=== PATIENT | male | born 1955 | race Hispanic/Latino ===

== ENCOUNTER 2025-05-21 22:09 | Inpatient (IN) | payer MEDICARE ==
[~2025-05-21] VITALS: Ht 175.3 cm; Wt 87.0 kg
--- NOTE | 2025-05-21 23:36 | HMCIMG ---
EXAM: CR Right Knee, 3 views. CLINICAL HISTORY: To rule out fracture. COMPARISON: None. FINDINGS: Undisplaced articular surface fracture of the lateral tibial condyle. The remaining visualized bones are normal in cortical outline and density. No aggressive osseous lesion. Mild knee joint osteoarthritis. Mild joint effusion. The soft tissues are unremarkable. IMPRESSION: Undisplaced articular surface fracture of the lateral tibial condyle. Mild knee joint osteoarthritis and effusion. Recommend NCCT right knee for further evaluation. /[place]
--- NOTE | 2025-05-21 23:38 | HMCIMG ---
EXAM: CR Right Tibia-fibula, 4 views. CLINICAL HISTORY: To rule out fracture. COMPARISON: None. FINDINGS: Undisplaced articular surface fracture of the lateral tibial condyle. The remaining visualized bones are normal in cortical outline and density. No aggressive osseous lesion. Mild right knee and ankle joint osteoarthritis. The soft tissues are unremarkable. IMPRESSION: Undisplaced articular surface fracture of the lateral tibial condyle. Mild right knee and ankle joint osteoarthritis. Recommend NCCT right knee for further evaluation. /[place]
[2025-05-22] VITALS (7 sets, daily range): BP systolic 124–134; BP diastolic 66–79; PULSE 68–81; RESP 16–20; TEMP 96.7–98.6; O2SAT 95–99
--- NOTE | 2025-05-22 | NUR ---
PATIENT CLEANED AND LINENS CHANGED. ALL PERSONAL BELONGINGS GATHERED AND PLACED IN HOSPITAL ISSUED BELONGINGS BAG, SECURED AT BEDSIDE.
[2025-05-22 00:52] LABS: IMMATURE GRANULOCYTE ABSOLUTE 0.05 K/uL (0-1); NUCLEATED RED BLOOD CELLS 0.0 % (0.0-0.19); PLATELET COUNT (AUTO) 356 K/uL (130-400); RED BLOOD CELL COUNT(AUTO) 4.09 MIL/uL (4.50-6.20); RED CELL DISTRIBUTION WIDTH 12.5 % (11.0-15.5); WHITE BLOOD COUNT (AUTO) 11.6 K/uL (4.8-10.8)
[2025-05-22 01:01] LABS: CREATININE 1.0 mg/dL (0.5-1.3); GLOMERULAR FILTR. RATE CALC 80.0 mL/min (>90); GLUCOSE,RANDOM 195.0 mg/dL (70-105); SODIUM SERUM 141.0 mmol/L (136-145); UREA NITROGEN, BLOOD 27.0 mg/dL (7-18)
--- NOTE | 2025-05-22 01:03 | HMCIMG ---
EXAM: CR Pelvis, 1 view. CLINICAL HISTORY: To rule out fracture. COMPARISON: None provided. FINDINGS: No acute fracture or aggressive appearing osseous lesion. Joint spaces are within normal limits. The soft tissues are unremarkable. IMPRESSION: No acute osseous abnormality. /[place]
--- NOTE | 2025-05-22 01:45 | HMCIMG ---
EXAM: Non-contrast CT examination of the Brain. CLINICAL HISTORY: Fall. TECHNIQUE: Thin collimated axial CT images of the brain were obtained, with sagittal and coronal reformatted images also submitted. A CT scan was done according to ALARA (As low as reasonably achievable). CONTRAST USED: None. COMPARISON: None provided. FINDINGS: No acute intracranial abnormality is present. 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 Small chronic infarct in the left frontal lobe cortex. Moderate small vessel chronic ischemic changes in bilateral cerebral white matter. No acute cortical infarction, hemorrhage, mass, or mass effect. There is mild prominence of the ventricles, cisterns, and sulci. No hydrocephalus or abnormal extra-axial fluid collections. The posterior fossa is unremarkable. The skull base and calvarium are intact. The included portions of the paranasal sinuses and bilateral mastoid air cells are clear. IMPRESSION: No acute intracranial abnormality is present. Mild generalized brain atrophy. 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 Small chronic infarct in the left frontal lobe cortex. Moderate chronic small vessel ischemic disease. /[place]
--- NOTE | 2025-05-22 02:14 | ERN ---
General Chief Complaint: Lower Extremity Pain/Injury Stated Complaint: RLE PAIN Time Seen by MD: 22:12 Time Seen by Midlevel: 22:12 Source: patient History of Present Illness Initial Comments Patient is a 70-year-old male with a past medical history of multiple strokes presenting to the emergency department for evaluation of right lower extremity pain. The patient states his pain starts at the right knee and extends all the way down to his foot. Patient states he was out of town and had a fall on Friday. He was seen in an emergency department and discharged home with pain medications which have not improved his symptoms. The patient states he is unable to ambulate secondary to right lower extremity pain. Allergies: Coded Allergies: No Known Drug Allergies (Unverified Allergy, Unknown, 05/21/25) Past Medical History Past Medical History: No Pertinent History Past Surgical History: Unknown ROS Dictation CONSTITUTIONAL: Negative except for HPI HEAD/FACE: Negative except for HPI EENT: Negative except for HPI RESPIRATORY: Negative except for HPI GASTROINTESTINAL/ABDOMINAL: Negative except for HPI GENITOURINARY: Negative except for HPI MUSCULOSKELETAL: Negative except for HPI INTEGUMENTARY: Negative except for HPI NEUROLOGICAL/PSYCH: Negative except for HPI HEMATOLOGIC/LYMPHATIC: Negative except for HPI All Systems Negative, Except as noted above. 13 point review of systems assessed and all negative except for above. Physical Exam Physical Exam Dictation Vital Signs reviewed General Appearance: Alert, oriented x 3, no acute distress, well developed, nourished. Head and Face: non-traumatic. Eyes: PERRL, pink conjunctivas, eyelid no trauma, anterior chamber with arcus senilis. Ears: Pinnas intact and no signs of trauma or erythema ear canals clear and no discharge TM no erythema Nose: No discharge, no bleeding. Oropharynx: Mouth normal, tongue pink, pharynx clear,no erythema, tonsils no exudates, no abscesses noted, mucous membrane moist Neck: Supple, non-tender, no thyromegaly, no masses, no JVD, no bruits Breast:Deferred Chest:No tenderness, no crepitus, no paradoxical movement, no retractions Lungs:Clear, well-ventilated, symmetric, no rales, no wheezing, no rhonchi, no stridor, good breath sounds bilaterally Heart: Regular rate, regular rhythm, no murmur, no gallops Vascular: no peripheral edema, Abdomen: Soft, positive bowel sounds, nondistended, no guarding, nontender, no rebound, no masses no hepatomegaly, no splenomegaly, no Geiger's sign, no hernias. Rectal: Deferred Genital: Deferred Neurological: Normal speech, motor function intact, sensory function intact Musculoskeletal: Neck nontender, full range of motion, back nontender, restricted range of motion of the right knee secondary to pain, tenderness over the right tib-fib area, 2+ DP, PT pulses bilaterally Extremities: nontender, full range of motion Skin: Color pink, dry, no turgor, no rash, no lacerations, no abrasions, no contusions. Lymphatic: Deferred Results Laboratory and Microbiology Lab and Micro Result Laboratory Tests Test 05/22/25 00:45 White Blood Count 11.6 K/uL (4.8-10.8) H Red Blood Count 4.09 MIL/uL (4.50-6.20) L Hemoglobin 13.2 g/dL (14.0-18.0) L Hematocrit 37.3 % (42-54) L Mean Corpuscular Volume 91.2 fL (79-99) Mean Corpuscular Hemoglobin 32.3 pg (27.0-33.0) Mean Corpuscular Hemoglobin Concent 35.4 g/dL (32.0-36.0) Red Cell Distribution Width 12.5 % (11.0-15.5) Platelet Count 356 K/uL (130-400) Mean Platelet Volume 9.6 fL (7.5-10.5) Immature Granulocyte % (Auto) 0.4 % (0-1) Neutrophils (%) (Auto) 80.8 % (40.0-77.0) H Lymphocytes (%) (Auto) 11.6 % (21.0-51.0) L Monocytes (%) (Auto) 6.5 % (3.0-13.0) Eosinophils (%) (Auto) 0.5 % (0.0-8.0) Basophils (%) (Auto) 0.2 % (0.0-5.0) Neutrophils # (Auto) 9.4 K/uL (1.8-7.7) H Lymphocytes # (Auto) 1.4 K/uL (1.0-4.8) Monocytes # (Auto) 0.8 K/uL (0.1-1.0) Eosinophils # (Auto) 0.06 K/uL (0.00-0.70) Basophils # (Auto) 0.02 K/uL (0.00-0.20) Absolute Immature Granulocyte (auto 0.05 K/uL (0-1) Nucleated Red Blood Cells 0.0 % (0.0-0.19) Sodium Level 141 mmol/L (136-145) Potassium Level 3.0 mmol/L (3.5-5.1) *L Chloride Level 104 mmol/L (101-111) Carbon Dioxide Level 24 mmol/L (21-32) Blood Urea Nitrogen 27 mg/dL (7-18) H Creatinine 1.0 mg/dL (0.5-1.3) Glomerular Filtration Rate Calc 80 mL/min (>90) Random Glucose 195 mg/dL (70-105) H Total Calcium 8.3 mg/dL (8.5-10.1) L Labs Reviewed?: Yes MDM MDM: 70-year-old male with a history of strokes presenting to the emergency department status post fall. On arrival with the patient's main concern is pain to the right knee and right tib-fib area. Patient denies hitting his head at the time of the fall but is a poor historian. On physical examination the patient has restricted range motion of the right knee with overlying tenderness of the proximal tib-fib area. An x-ray was performed which reveals findings consistent with a superficial fracture. Per radiologist noncontrast CT was advised. A CT scan of the right lower extremity and pelvis was obtained. CT scan of the head does not show any acute intracranial abnormality. Pending CT of the right lower extremity and pelvis. We will sign out to Dr. Levine Differential diagnosis: Fracture, contusion Rationale: Tests considered and ordered secondary to shared decision making include: Previous outside records reviewed: Old ER visits. Risk of complication and/or morbidity or mortality of patient management: None Medications-Per medication reconciliation Need for hospitalization: Patient does meet criteria for hospitalization. Need for emergency major/minor surgery: No There are no social concerns with this patient. Prescription drug management Prescriptions will include symptomatic care Patient's prior external medical records from other ER visits were reviewed by me as indicated. Prior testing and results from previous visits were reviewed. Prior tests were taken into account with medical decision making and resource utilization, independent historian/historians were used to obtain complete medical history. I independently interpreted the test that were performed, results were reviewed by me and considered findings on radiology if ordered. Medical management and examination interpretation discussions were had by me with other qualified healthcare professionals as indicated for the patient's care. ED Course Orders Procedure Category Date Status Time Pelvis 1-2vws RAD 05/21/25 Resulted 22:54 Tibia/Fibula 2vws Rt RAD 05/21/25 Resulted 22:54 Knee 3vws Rt RAD 05/21/25 Resulted 22:54 Morphine 2mg Syg PHA 05/21/25 Complete (Morphine 2mg Syg) 23:00 Ondansetron 4mg Inj PHA 05/21/25 Complete (Zofran 4mg Inj) 23:00 Cbc With Differential LAB 05/22/25 Complete 00:32 Basic Metabolic Panel LAB 05/22/25 Complete 00:32 Ct Low Ext W/O CT 05/22/25 Resulted Contrast 00:32 Ct Head/Brain W/O CT 05/22/25 Resulted Contrast 00:33 Ct Pelvis W/O Contrast CT 05/22/25 Resulted 00:58 Potassium Bicarb/Cit PHA 05/22/25 Complete Ac 25meq (K-Lyte Ta 02:00 Morphine 4mg Syg PHA 05/22/25 Complete (Morphine 4mg Syg) 03:00 Current Medications Medications (Trade) Dose Ordered Sig/Bettina Route PRN Reason Start Time Stop Time Status Last Admin Dose Admin Morphine Sulfate (morPHINE 2MG SYG) 1 mg ONCE ONCE IVP 05/21/25 23:00 05/21/25 23:06 DC 05/21/25 23:12 Morphine Sulfate (morPHINE 4MG SYG) 4 mg ONCE ONCE IVP 05/22/25 03:00 05/22/25 03:01 DC 05/22/25 03:05 Ondansetron HCl (zoFRAN 4MG INJ) 4 mg ONCE ONCE IVP 05/21/25 23:00 05/21/25 23:06 DC 05/21/25 23:12 Potassium Bicarbonate (K-Lyte Tablet Eff 25 Meq Tablet.eff) 50 meq ONCE ONCE PO 05/22/25 02:00 05/22/25 02:01 DC 05/22/25 02:24 Vital Signs Date Time Temp Pulse Resp B/P (MAP) Pulse Ox O2 Delivery O2 Flow Rate FiO2 05/22/25 02:50 80 16 131/71 97 Room Air* 0 21 05/22/25 01:35 92 15 136/68 97 Room Air* 0 05/22/25 00:11 86 16 138/63 97 Room Air* 0 21 05/21/25 22:26 98.4 90 17 149/72 97 Room Air* 0 21 05/21/25 22:11 98.1 92 16 132/77 95 Room Air 0 4:00 a.m. patient accepted by [facility] mid-level provider for admission and further management of intractable right knee pain with fracture of the joint from a fall that he sustained recently DX & DISP Disposition: Inpatient Decision to Admit Time: 03:48 Departure Impression: Primary Impression: Fracture dislocation of right knee joint Additional Impressions: Right knee pain, Hypokalemia Condition: Stable Additional Instructions: Patient was informed of all the diagnostic labs and procedures conducted in the emergency room today and demonstrated understanding of the results. I personally reviewed and interpreted all the diagnostic exams performed in the ER today. The patient will be admitted to the hospital for further treatment and evaluation. Disposition-admit to facility Condition-stable/guarded Course-uncertain at this time Pain status-decreased Assessment-exam unchanged Admission Certification- I certify that the patients status is appropriate and is based on my best clinical judgment and the patient's condition as documented in the medical records Referrals: NONE (PCP) DESTINI MCKENZIE May 22, 2025 02:14 ANDREIA LEVINE MD May 22, 2025 03:52
--- NOTE | 2025-05-22 02:15 | HMCIMG ---
EXAM: Non-contrast CT examination of the right knee. CLINICAL HISTORY: Rule out right knee fracture. TECHNIQUE: Thin collimated axial CT images of the right knee were obtained, with sagittal and coronal reformatted images also submitted. A CT scan was done according to ALARA (As low as reasonably achievable). CONTRAST USED: None. COMPARISON: None provided. FINDINGS: There is a minimally depressed acute intra-articular fracture of the lateral tibial plateau. Decreased bone mineralization. Small tricompartmental osteophytes. Joint spaces are within normal limits. Mild joint effusion. Atherosclerotic vascular calcification is present. IMPRESSION: Minimally depressed acute intra-articular fracture of the lateral tibial plateau. Mild joint effusion. Osteopenia with mild tricompartmental joint osteoarthritis. /[place]
--- NOTE | 2025-05-22 02:24 | HMCIMG ---
EXAM: Non-contrast CT examination of the bony pelvis. CLINICAL HISTORY: Fall. TECHNIQUE: Thin collimated axial CT images of the bony pelvis were obtained, with sagittal and coronal reformatted images also submitted. A CT scan was done according to ALARA (As low as reasonably achievable). CONTRAST USED: Pelvic radiograph. 05/21/2025. COMPARISON: None provided. FINDINGS: No acute fracture or aggressively appearing osseous lesion. Lumbar spondylosis. Decreased bone mineralization. Mild reduction in the left hip joint space with subarticular cystic changes. Small right inguinal hernia containing fat. IMPRESSION: No acute fracture or dislocation. Osteopenia with moderate degenerative changes in the left hip. /[place]
--- NOTE | 2025-05-22 02:46 | NUR ---
PATIENT PLACED IN KNEE IMMOBILIZER DIRECTED BY ED CALVIN GEORGES. IMMOBILIZER PROPERLY APPLIED AND SECURED. PT TOLERATED PLACEMENT WELL. EDUCATED PROVIDED ABOUT THE IMPORTANCE OF A KNEE IMMOBILIZER. PT VERBILIZED UNDERSTANDING OF EDUCATION.
--- NOTE | 2025-05-22 04:10 | NUR ---
PT REPORTS NO HOME MEDICATIONS
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
--- NOTE | 2025-05-22 04:15 | NUR ---
ATTEMPT TO GIVE REPORT AT THIS TIME. NOT SUCCESSFUL.
--- NOTE | 2025-05-22 04:28 | EKG ---
[facility] Test Date: 2025-05-22 Test Time: 04:24:11 Pat Name: DOROTHY MITCHELL Department: [facility] Room: 415 Gender: M Crowning Inspector: [id number] : 1955 Requested By: PÉREZ TARANGO Order Number: [id number] Reading MD: Juan Snyder Measurements Intervals [place] Rate: 82 P: -15 WI: 266 QRS: 115 QRSD: 137 T: -26 QT: 407 QTc: 474 Interpretive Statements Sinus rhythm Prolonged WI interval RBBB and LPFB Inferior infarct, age indeterminate No previous ECG available for comparison Electronically Signed On 05-22-2025 11:40:47 CDT by Juan Snyder Please click the below link to view image of tracing.
--- NOTE | 2025-05-22 04:54 | NUR ---
REPORT GIVEN TO LAUREL BYRNE AT THIS TIME
[2025-05-22] MEDS: LACTATED RINGERS 1000ML 1,000 ML IV SCH (05:08)
[2025-05-22 06:25] LABS: INR 1.07 (0.85-1.15)
[2025-05-22] MEDS: FAMOTIDINE 20MG VIAL IV SCH (09:00)
[2025-05-22 09:40] LABS: CREATINE KINASE, TOTAL 92.0 U/L (21-232)
[2025-05-22 10:57] LABS: APPEARANCE,URINE CLEAR (CLEAR); GLUCOSE, URINE (UA) 300 mg/dL (NEGATIVE); LEUKOCYTE ESTERASE ,URINE NEGATIVE Leu/uL (NEGATIVE); NITRATE,URINE NEGATIVE (NEGATIVE); OCCULT BLOOD,URINE NEGATIVE (NEGATIVE)
[2025-05-22 10:58] LABS: ADD UA MICROSCOPIC YES
--- NOTE | 2025-05-22 11:50 | HMCIMG ---
EXAM: CR Chest, 1 View. CLINICAL HISTORY: pre procedural COMPARISON: None provided. FINDINGS: LUNGS: Prominent bronchovascular markings in bilateral lung laboy. Mild elevation of the left hemidiaphragm. Lungs are clear. PLEURAL SPACES: No pleural effusion or pneumothorax. MEDIASTINUM: Heart size and pulmonary vessels are within normal limits. BONES: No acute osseous abnormality. IMPRESSION: 1. No acute cardiopulmonary findings. /[place]
--- NOTE | 2025-05-22 15:38 | NUR ---
PATIENTS POTASSIUM 3.0 IN ER. COVERED WITH ONE DOSE OF POTASSIUM IN ER. PER PROVIDER WE WILL NOT CHECK POTASSIUM LEVEL AT THIS TIME.
--- NOTE | 2025-05-22 16:45 | CONS ---
CONSULTATION NOTE Date of Service: May 22, 2025 Reason for Consultation: Right tibial plateau fracture Requesting Physician: No one called me HISTORY OF PRESENT ILLNESS: 70-year-old male with right knee injury status post fall four days ago. Patient was reporting right leg pain when he was out of town at that time. He reports that he was seen in the hospital and told nothing was wrong. He came to the emergency room here due to continued pain in the right leg. Right knee x-ray showed a lateral tibial plateau fracture that was nondisplaced. This was confirmed on CT scan. Orthopedics was consulted for management of this. The emergency room placed him into a knee immobilizer. REVIEW OF SYSTEMS CONSTITUTIONAL: Denies fever, chills, or fatigue. HEAD/FACE: No signs of trauma. EENT: Denies eye pain, blurred vision, double vision, or light sensitivity. RESPIRATORY: Denies shortness of breath, cough, wheezing CARDIOVASCULAR: Denies chest pain, palpitation, syncope GASTROINTESTINAL/ABDOMINAL: Denies abdominal pain, constipation, diarrhea, nausea or vomiting GENITOURINARY: Denies dysuria or hematuria. MUSCULOSKELETAL: Reports joint pain, tenderness, trauma. INTEGUMENTARY: Denies rash or itchiness NEUROLOGICAL/PSYCH: Denies anxiety, depression, heat or cold intolerance. PAST MEDICAL HISTORY: Denies PAST SURGICAL HISTORY: Left testicular surgery, right 2nd toe amputation PAST SOCIAL HISTORY: Negative x3, homeless FAMILY HISTORY: Noncontributory Coded Allergies: No Known Drug Allergies (Unverified Allergy, Unknown, 05/21/25) PHYSICAL EXAM EYES: Anicteric. HENT: Moist Oral mucosa NECK: Supple LUNGS: Nonlabored breathing CARDIOVASCULAR: Regular rate ABDOMEN: Nondistended CENTRAL NERVOUS SYSTEM: Awake, alert, oriented x 3. No focal deficits. SKIN: No lacerations, no abrasions, no ecchymosis LYMPHATICS: No peripheral lymphadenopathy MUSCULOSKELETAL: Right lower extremity in a knee immobilizer. Patient yells in pain when I gently touched the foot to remove his sock for distal neurovascular exam and yells at me to take my hand off of him. He states that his sensation is intact. He wheels as toes on command. EXTREMITIES: No cyanosis or clubbing BACK: Deferred GENITOURINARY: Deferred Vital Sign (Last 24 Hours) 05/22/25 05/22/25 05/22/25 08:00 12:00 16:22 Temp 96.6 Pulse 68 Resp 16 B/P (MAP) 134/66 Pulse Ox 97 O2 Delivery Room Air O2 Flow Rate 0 FiO2 21 LABS: Laboratory: Test 05/22/25 10:48 05/22/25 09:18 05/22/25 05:38 05/22/25 00:45 Range/Units Urine Color YELLOW YELLOW Urine Appearance CLEAR CLEAR Urine pH 5.5 5.0-8.0 Urine Specific [place] 1.028 1.001-1.031 Urine Protein 70 H NEGATIVE mg/dL Urine Glucose (UA) 300 H NEGATIVE mg/dL Urine Ketones 20 H NEGATIVE mg/dL Urine Occult Blood NEGATIVE NEGATIVE Urine Nitrate NEGATIVE NEGATIVE Urine Bilirubin 0.5 H NEGATIVE mg/dL Urine Urobilinogen 0.2 0.2-1.0 mg/dL Urine Leukocyte Esterase NEGATIVE NEGATIVE Sergio/uL Urine RBC 0-1 0-1 /HPF Urine WBC 6-10 H 0-1 /HPF Urine Bacteria None None Seen /HPF Lactic Acid Level 1.1 0.8-2.5 mmol/L Total Creatine Kinase 92 21-232 U/L Prothrombin Time 11.3 9.6-11.6 SEC Prothromb Time International Ratio 1.07 0.85-1.15 Activated Partial Thromboplast Time 30.4 26.3-35.5 SEC White Blood Count 11.6 H 4.8-10.8 K/uL Red Blood Count 4.09 L 4.50-6.20 MIL/uL Hemoglobin 13.2 L 14.0-18.0 g/dL Hematocrit 37.3 L 42-54 % Mean Corpuscular Volume 91.2 79-99 fL Mean Corpuscular Hemoglobin 32.3 27.0-33.0 pg Mean Corpuscular Hemoglobin Concent 35.4 32.0-36.0 g/dL Red Cell Distribution Width 12.5 11.0-15.5 % Platelet Count 356 130-400 K/uL Mean Platelet Volume 9.6 7.5-10.5 fL Immature Granulocyte % (Auto) 0.4 0-1 % Neutrophils (%) (Auto) 80.8 H 40.0-77.0 % Lymphocytes (%) (Auto) 11.6 L 21.0-51.0 % Monocytes (%) (Auto) 6.5 3.0-13.0 % Eosinophils (%) (Auto) 0.5 0.0-8.0 % Basophils (%) (Auto) 0.2 0.0-5.0 % Neutrophils # (Auto) 9.4 H 1.8-7.7 K/uL Lymphocytes # (Auto) 1.4 1.0-4.8 K/uL Monocytes # (Auto) 0.8 0.1-1.0 K/uL Eosinophils # (Auto) 0.06 0.00-0.70 K/uL Basophils # (Auto) 0.02 0.00-0.20 K/uL Absolute Immature Granulocyte (auto 0.05 0-1 K/uL Nucleated Red Blood Cells 0.0 0.0-0.19 % Sodium Level 141 136-145 mmol/L Potassium Level 3.0 *L 3.5-5.1 mmol/L Chloride Level 104 101-111 mmol/L Carbon Dioxide Level 24 21-32 mmol/L Blood Urea Nitrogen 27 H 7-18 mg/dL Creatinine 1.0 0.5-1.3 mg/dL Glomerular Filtration Rate Calc 80 >90 mL/min Random Glucose 195 H 70-105 mg/dL Total Calcium 8.3 L 8.5-10.1 mg/dL Magnesium Level 2.00 1.80-2.40 mg/dL DIAGNOSTICS / RADIOLOGY: Two views of the right knee with nondisplaced right lateral tibial plateau fracture. CT scan confirmed isolated right lateral tibial plateau fracture ASSESSMENT: 70-year-old male with right lateral tibial plateau nondisplaced fracture PLAN: This can be treated in knee immobilizer. Patient is to remain nonweightbearing on the right lower extremity over the next three months. [facility] two weeks. HARSHAL GONZALEZ MD May 22, 2025 16:45
--- NOTE | 2025-05-22 22:51 | PN ---
[facility] PROGRESS NOTE Date of Service: May 22, 2025 Time of Service: 22:00 SUBJECTIVE: 70-year-old male with unknown past medical history, history of alcoholism, homeless status presented to ER with complaints of right lower extremity pain pain at 4 days. Patient reports that he was traveling from [place] by bus. While using the restroom, he slipped and fell. He was taken to a nearby hospital via EMS, but was discharged from the emergency department with pain medications .His pain persisted which prompted the ED visit. At the time of presentation, patient reported excruciating right knee pain and was unable to ambulate properly. His vitals were: Temperature 98.1, pulse rate 92 per minute, respiratory rate 16 per minute, BP 132/77 mmHg, pulse oximetry 95% on room air. On examination patient had restricted range of motion of the right knee with tenderness of the proximal tibia area. X-ray showed features suggestive of Undisplaced articular surface fracture of the lateral tibial condyle. Intrauterine. CT scan showed Minimally depressed acute intra- articular fracture of the lateral tibial plateau. Rest of the trauma workup was negative. Patient is admitted for evaluation and management right tibial fracture. Orthopedic surgery was consulted. 05/22/2025: Patient was seen and evaluated at the bedside. He complains of persistent right tibial pain even with morphine. Right leg knee immobilizer is in place. Vitals are stable[place] [address], potassium 3, BUN 27. Pending orthopedic surgery consult. Patient stated that [place] the streets but has some form of insurance coverage- interlibrary loan services librarian and case management on board. REVIEW OF SYSTEMS CONSTITUTIONAL: Denies fevers, chills, or night sweats. No unintentional weight loss reported. NEUROLOGICAL: Denies headache. Positive for generalized weakness. Bed-bound CARDIOVASCULAR: Denies any exertional angina, dyspnea on exertion, orthopnea, palpitations PULMONARY: Denies any shortness of breath, cough, phlegm/sputum, hemoptysis, pleuritic chest pain. GASTROINTESTINAL: Denies any type of dysphagia to either liquids or solids. Denies nausea, vomiting, pyrosis, early satiety, abdominal pain, diarrhea, constipation, or changes in stool consistency GENITOURINARY: Denies frequency, urgency, nocturia, hematuria or incontinence HEMATOLOGIC: Denies thrombophilia/previous clots, or coagulopathy/bleeding disorders. ONCOLOGIC: Denies personal history of malignancy. PSYCHIATRIC: Denies any suicidal or homicidal ideation. Denies hallucinations. PHYSICAL EXAM GENERAL APPEARANCE: The patient is awake, alert, and oriented, in no acute cardiopulmonary distress. NEUROLOGICAL: Cranial nerves II-XII grossly intact. Motor strength,sensory examination in the lower extremities and gait could not be assessed, due to severe pain at the time of my evaluation. HEENT: Face is symmetric. Pupils are equal and reactive. Poor oral hygiene NECK: Supple. No JVD. No thyromegaly. No lymphadenopathy LUNGS: Absence of any rales, rhonchi or any wheezing. CARDIOVASCULAR: Regular. S1 and S2 normal. No appreciable rubs, murmurs or gallops. ABDOMEN: Soft, nontender, and nondistended. There is no rebound, voluntary guarding, or rigidity. EXTREMITIES: Non-edematous and not cyanotic. Right leg knee immobilizer in place, status post right 2nd toe amputation Bilateral foot hyperpigmentation Vital Signs (last 8hr) Date Time Temp Pulse Resp B/P (MAP) Pulse Ox O2 Delivery O2 Flow Rate FiO2 05/22/25 20:00 98.6 81 20 133/76 95 Room Air 05/22/25 16:22 96.6 68 16 134/66 97 Room Air LABS: Laboratory: Test 05/22/25 10:48 05/22/25 09:18 05/22/25 05:38 05/22/25 00:45 Range/Units Urine Color YELLOW YELLOW Urine Appearance CLEAR CLEAR Urine pH 5.5 5.0-8.0 Urine Specific [place] 1.028 1.001-1.031 Urine Protein 70 H NEGATIVE mg/dL Urine Glucose (UA) 300 H NEGATIVE mg/dL Urine Ketones 20 H NEGATIVE mg/dL Urine Occult Blood NEGATIVE NEGATIVE Urine Nitrate NEGATIVE NEGATIVE Urine Bilirubin 0.5 H NEGATIVE mg/dL Urine Urobilinogen 0.2 0.2-1.0 mg/dL Urine Leukocyte Esterase NEGATIVE NEGATIVE Sergio/uL Urine RBC 0-1 0-1 /HPF Urine WBC 6-10 H 0-1 /HPF Urine Bacteria None None Seen /HPF Lactic Acid Level 1.1 0.8-2.5 mmol/L Total Creatine Kinase 92 21-232 U/L Vitamin D 25-Hydroxy 21.6 30.0-100.0 ng/mL Prothrombin Time 11.3 9.6-11.6 SEC Prothromb Time International Ratio 1.07 0.85-1.15 Activated Partial Thromboplast Time 30.4 26.3-35.5 SEC White Blood Count 11.6 H 4.8-10.8 K/uL Red Blood Count 4.09 L 4.50-6.20 MIL/uL Hemoglobin 13.2 L 14.0-18.0 g/dL Hematocrit 37.3 L 42-54 % Mean Corpuscular Volume 91.2 79-99 fL Mean Corpuscular Hemoglobin 32.3 27.0-33.0 pg Mean Corpuscular Hemoglobin Concent 35.4 32.0-36.0 g/dL Red Cell Distribution Width 12.5 11.0-15.5 % Platelet Count 356 130-400 K/uL Mean Platelet Volume 9.6 7.5-10.5 fL Immature Granulocyte % (Auto) 0.4 0-1 % Neutrophils (%) (Auto) 80.8 H 40.0-77.0 % Lymphocytes (%) (Auto) 11.6 L 21.0-51.0 % Monocytes (%) (Auto) 6.5 3.0-13.0 % Eosinophils (%) (Auto) 0.5 0.0-8.0 % Basophils (%) (Auto) 0.2 0.0-5.0 % Neutrophils # (Auto) 9.4 H 1.8-7.7 K/uL Lymphocytes # (Auto) 1.4 1.0-4.8 K/uL Monocytes # (Auto) 0.8 0.1-1.0 K/uL Eosinophils # (Auto) 0.06 0.00-0.70 K/uL Basophils # (Auto) 0.02 0.00-0.20 K/uL Absolute Immature Granulocyte (auto 0.05 0-1 K/uL Nucleated Red Blood Cells 0.0 0.0-0.19 % Sodium Level 141 136-145 mmol/L Potassium Level 3.0 *L 3.5-5.1 mmol/L Chloride Level 104 101-111 mmol/L Carbon Dioxide Level 24 21-32 mmol/L Blood Urea Nitrogen 27 H 7-18 mg/dL Creatinine 1.0 0.5-1.3 mg/dL Glomerular Filtration Rate Calc 80 >90 mL/min Random Glucose 195 H 70-105 mg/dL Total Calcium 8.3 L 8.5-10.1 mg/dL Magnesium Level 2.00 1.80-2.40 mg/dL Current Medications Medications (Trade) Dose Ordered Sig/Bettina Route PRN Reason Start Time Stop Time Status Last Admin Dose Admin Acetaminophen (TYLenol 650MG SUPPOSITORY) 650 mg Q6H PRN RC MILD PAIN (1-3) 05/22/25 04:30 06/21/25 04:29 Famotidine (Pepcid 20mg Vial) 20 mg DAILY IV 05/22/25 09:00 06/21/25 08:59 05/22/25 09:00 20 MG Hydralazine HCl (APRESOLine 20MG INJ) 10 mg Q6H PRN IV For:SBP above 160;DBP above 90 05/22/25 04:30 06/21/25 04:29 Hydromorphone HCl (DiLAUDid 0.5MG INJ) 0.2 mg Q4H PRN IVP SEVERE PAIN (7-10) 05/22/25 18:30 05/27/25 18:29 Lactated Ringer's 1,000 ml @ 75 mls/hr [id number] IV 05/22/25 04:30 06/21/25 04:29 05/22/25 05:08 75 MLS/HR Magnesium Sulfate 50 ml @ 0 mls/hr PROTOCOL PRN IV h 05/22/25 04:30 06/21/25 04:29 Morphine Sulfate (morPHINE 2MG SYG) 2 mg Q4H PRN IVP SEVERE PAIN (7-10) 05/22/25 04:30 05/22/25 18:19 DC 05/22/25 12:55 2 MG Ondansetron HCl (zoFRAN 4MG INJ) 4 mg Q6H PRN IV NAUSEA/VOMITING 05/22/25 04:30 06/21/25 04:29 05/22/25 05:46 4 MG Potassium Chloride 100 ml @ 50 mls/hr AD PRN IV POTASSIUM PROTOCOL 05/22/25 04:30 06/21/25 04:29 Potassium Chloride 100 ml @ 100 mls/hr AD PRN IV POTASSIUM PROTOCOL 05/22/25 04:30 06/21/25 04:29 Potassium Chloride (K-Dur/Klor-Con 20meq) 20 meq AD PRN PO POTASSIUM PROTOCOL 05/22/25 04:30 06/21/25 04:29 Potassium Chloride (KCl 10% Elixir 20meq/15ml) 20 meq AD PRN PO POTASSIUM PROTOCOL 05/22/25 04:30 06/21/25 04:29 DIAGNOSTICS / RADIOLOGY: [ ] ASSESSMENT: Right lateral tibial plateau nondisplaced fracture, POA Homeless status POA Hypokalemia History of Left testicular surgery, right 2nd toe amputation History of alcoholism PLAN: Right lateral tibial plateau nondisplaced fracture, POA Orthopedic surgery recommended Conservative management Nonweightbearing status on right lower extremity Follow up with ortho outpatient in 2 weeks Homeless status POA Social service and keycase assembler on board ATTESTATION BY PHYSICIAN I have seen and examined the patient. I reviewed the documentation, medical decision making, and treatment plan as noted by the resident provider above. I agree with the findings and plan of care. Michael Philip MD, ANCHU A MD May 22, 2025 22:51
[2025-05-23] VITALS (7 sets, daily range): BP systolic 122–152; BP diastolic 60–72; PULSE 73–80; RESP 16–20; TEMP 97.8–98.6; O2SAT 94–96
[2025-05-23 05:00] LABS: IMMATURE GRANULOCYTE ABSOLUTE 0.03 K/uL (0-1); NUCLEATED RED BLOOD CELLS 0.0 % (0.0-0.19); PLATELET COUNT (AUTO) 302 K/uL (130-400); RED BLOOD CELL COUNT(AUTO) 3.68 MIL/uL (4.50-6.20); RED CELL DISTRIBUTION WIDTH 12.4 % (11.0-15.5); WHITE BLOOD COUNT (AUTO) 7.8 K/uL (4.8-10.8)
[2025-05-23 05:13] LABS: CREATININE 0.9 mg/dL (0.5-1.3); GLOMERULAR FILTR. RATE CALC 91.0 mL/min (>90); GLUCOSE,RANDOM 221.0 mg/dL (70-105); PHOSPHORUS 2.9 mg/dL (2.5-4.9); SODIUM SERUM 142.0 mmol/L (136-145); UREA NITROGEN, BLOOD 24.0 mg/dL (7-18)
[2025-05-23] MEDS: PoTASSium chloRIDE 20MEQ ER 20 MEQ ERTAB PO PRN (05:40)
[2025-05-23] MEDS: MAGNESIUM 2GM PREMIX 50ML 50 ML IV PRN (05:40)
[2025-05-23] MEDS: PoTASSium chloRIDE 20MEQ ER 20 MEQ ERTAB PO ONE (09:48)
--- NOTE | 2025-05-23 13:25 | NUR ---
DCP:HOME Pt is currently homeless. Pt states that he had gone to [place], [place] to see if he could stay with his children in their homes however he states that his children "kicked me out". Pt states that he does not have any other family members here that are willing to help him. Pt does use a walker. SW discussed discharge plan, pt states that he receives a check of "1000 something" and that he wants to find somewhere to rent. Pt stated that he is willing to go to a SNF for PT and then find a place afterwards. SW still left him community resources for shelters and medical care centers. Addendum: 05/23/25 at 1331 by GHASSAN KUMAIR SS Amended: Links added.
--- NOTE | 2025-05-23 15:53 | PN ---
[facility] PROGRESS NOTE Date of Service: May 23, 2025 Time of Service: 15:41 SUBJECTIVE: 70-year-old male with unknown past medical history, history of alcoholism, homeless status presented to ER with complaints of right lower extremity pain pain at 4 days. Patient reports that he was traveling from [place] by bus. While using the restroom, he slipped and fell. He was taken to a nearby hospital via EMS, but was discharged from the emergency department with pain medications .His pain persisted which prompted the ED visit. At the time of presentation, patient reported excruciating right knee pain and was unable to ambulate properly. His vitals were: Temperature 98.1, pulse rate 92 per minute, respiratory rate 16 per minute, BP 132/77 mmHg, pulse oximetry 95% on room air. On examination patient had restricted range of motion of the right knee with tenderness of the proximal tibia area. X-ray showed features suggestive of Undisplaced articular surface fracture of the lateral tibial condyle. Intrauterine. CT scan showed Minimally depressed acute intra- articular fracture of the lateral tibial plateau. Rest of the trauma workup was negative. Patient is admitted for evaluation and management right tibial fracture. Orthopedic surgery was consulted. 05/22/2025: Patient was seen and evaluated at the bedside. He complains of persistent right tibial pain even with morphine. Right leg knee immobilizer is in place. Vitals are stable. [place] [address], potassium 3, BUN 27. Pending orthopedic surgery consult. Patient stated [place] the streets but has some form of insurance coverage- director learning services and case management on board. 05/23/2025: The patient was seen and evaluated at the bedside. The patient reported experiencing severe right tibial pain rating it as 10 on a scale of 1- 10. The pain was exacerbated by movement and touch, but sometimes the pain was so intense that standard pain medications were ineffective. The patient described the onset of pain following a fall in the restroom while traveling on a bus from [place] ,which resulted in twisted leg. The patient was prescribed pain pills, which have not alleviated the pain. The patient reported not having any previous falls of this kind. Patient is awake, alert, orientedx3. He his vitals are normal except BP 130/72. WBC count trending down, RBC 3.68, hemoglobin decreased from 13.2-11.7. Urinalysis revealed urine protein 70, glucose 300, ketones 20, WBC 6-10, all seems to be high. HGB A1c 9.1, BUN 24, potassium 3.2. Urine culture [place] less [place] 53709 colony-forming units. Patient will be monitored for one more night and will be planned for discharge tomorrow period REVIEW OF SYSTEMS CONSTITUTIONAL: Denies fevers, chills, or night sweats. No unintentional weight loss reported. NEUROLOGICAL: Denies headache. Positive for generalized weakness. Bed-bound CARDIOVASCULAR: Denies any exertional angina, dyspnea on exertion, orthopnea, palpitations PULMONARY: Denies any shortness of breath, cough, phlegm/sputum, hemoptysis, pleuritic chest pain. GASTROINTESTINAL: Denies any type of dysphagia to either liquids or solids. Denies nausea, vomiting, pyrosis, early satiety, abdominal pain, diarrhea, constipation, or changes in stool consistency GENITOURINARY: Denies frequency, urgency, nocturia, hematuria or incontinence HEMATOLOGIC: Denies thrombophilia/previous clots, or coagulopathy/bleeding disorders. ONCOLOGIC: Denies personal history of malignancy. PSYCHIATRIC: Denies any suicidal or homicidal ideation. Denies hallucinations. PHYSICAL EXAM GENERAL APPEARANCE: The patient is awake, alert, and oriented, in no acute cardiopulmonary distress. NEUROLOGICAL: Cranial nerves II-XII grossly intact. Motor strength,sensory examination in the lower extremities and gait could not be assessed, due to severe pain at the time of my evaluation. HEENT: Face is symmetric. Pupils are equal and reactive. Poor oral hygiene NECK: Supple. No JVD. No thyromegaly. No lymphadenopathy LUNGS: Absence of any rales, rhonchi or any wheezing. CARDIOVASCULAR: Regular. S1 and S2 normal. No appreciable rubs, murmurs or gallops. ABDOMEN: Soft, nontender, and nondistended. There is no rebound, voluntary guarding, or rigidity. EXTREMITIES: Non-edematous and not cyanotic. Right leg knee immobilizer in place, status post right 2nd toe amputation Bilateral foot hyperpigmentation Vital Signs (last 8hr) Date Time Temp Pulse Resp B/P (MAP) Pulse Ox O2 Delivery O2 Flow Rate FiO2 05/23/25 12:00 98.2 74 18 130/72 98 Room Air 05/23/25 08:00 94 Room Air* 0 21 05/23/25 08:00 98.1 78 18 128/71 94 Room Air LABS: Laboratory: Test 05/23/25 04:24 05/22/25 10:48 05/22/25 09:18 05/22/25 05:38 Range/Units White Blood Count 7.8 4.8-10.8 K/uL Red Blood Count 3.68 L 4.50-6.20 MIL/uL Hemoglobin 11.7 L 14.0-18.0 g/dL Hematocrit 34.4 L 42-54 % Mean Corpuscular Volume 93.5 79-99 fL Mean Corpuscular Hemoglobin 31.8 27.0-33.0 pg Mean Corpuscular Hemoglobin Concent 34.0 32.0-36.0 g/dL Red Cell Distribution Width 12.4 11.0-15.5 % Platelet Count 302 130-400 K/uL Mean Platelet Volume 9.8 7.5-10.5 fL Immature Granulocyte % (Auto) 0.4 0-1 % Neutrophils (%) (Auto) 66.1 40.0-77.0 % Lymphocytes (%) (Auto) 22.8 21.0-51.0 % Monocytes (%) (Auto) 8.0 3.0-13.0 % Eosinophils (%) (Auto) 2.4 0.0-8.0 % Basophils (%) (Auto) 0.3 0.0-5.0 % Neutrophils # (Auto) 5.2 1.8-7.7 K/uL Lymphocytes # (Auto) 1.8 1.0-4.8 K/uL Monocytes # (Auto) 0.6 0.1-1.0 K/uL Eosinophils # (Auto) 0.19 0.00-0.70 K/uL Basophils # (Auto) 0.02 0.00-0.20 K/uL Absolute Immature Granulocyte (auto 0.03 0-1 K/uL Nucleated Red Blood Cells 0.0 0.0-0.19 % Sodium Level 142 136-145 mmol/L Potassium Level 3.2 L 3.5-5.1 mmol/L Chloride Level 107 101-111 mmol/L Carbon Dioxide Level 26 21-32 mmol/L Blood Urea Nitrogen 24 H 7-18 mg/dL Creatinine 0.9 0.5-1.3 mg/dL Glomerular Filtration Rate Calc 91 >90 mL/min Random Glucose 221 H 70-105 mg/dL Hemoglobin A1c 9.1 H 4.0-6.0 % Estimated Average Glucose (eAG) 214 H 70-126 mg/dL Total Calcium 8.1 L 8.5-10.1 mg/dL Phosphorus Level 2.9 2.5-4.9 mg/dL Magnesium Level 1.90 1.80-2.40 mg/dL Thyroid Stimulating Hormone (TSH) 1.66 0.36-3.74 uIU/mL Urine Color YELLOW YELLOW Urine Appearance CLEAR CLEAR Urine pH 5.5 5.0-8.0 Urine Specific [place] 1.028 1.001-1.031 Urine Protein 70 H NEGATIVE mg/dL Urine Glucose (UA) 300 H NEGATIVE mg/dL Urine Ketones 20 H NEGATIVE mg/dL Urine Occult Blood NEGATIVE NEGATIVE Urine Nitrate NEGATIVE NEGATIVE Urine Bilirubin 0.5 H NEGATIVE mg/dL Urine Urobilinogen 0.2 0.2-1.0 mg/dL Urine Leukocyte Esterase NEGATIVE NEGATIVE Sergio/uL Urine RBC 0-1 0-1 /HPF Urine WBC 6-10 H 0-1 /HPF Urine Bacteria None None Seen /HPF Lactic Acid Level 1.1 0.8-2.5 mmol/L Total Creatine Kinase 92 21-232 U/L Vitamin D 25-Hydroxy 21.6 30.0-100.0 ng/mL Prothrombin Time 11.3 9.6-11.6 SEC Prothromb Time International Ratio 1.07 0.85-1.15 Activated Partial Thromboplast Time 30.4 26.3-35.5 SEC Current Medications Medications (Trade) Dose Ordered Sig/Bettina Route PRN Reason Start Time Stop Time Status Last Admin Dose Admin Acetaminophen (TYLenol 650MG SUPPOSITORY) 650 mg Q6H PRN RC MILD PAIN (1-3) 05/22/25 04:30 06/21/25 04:29 Famotidine (Pepcid 20mg Vial) 20 mg DAILY IV 05/22/25 09:00 06/21/25 08:59 05/23/25 09:48 20 MG Hydralazine HCl (APRESOLine 20MG INJ) 10 mg Q6H PRN IV For:SBP above 160;DBP above 90 05/22/25 04:30 06/21/25 04:29 Hydromorphone HCl (DiLAUDid 0.5MG INJ) 0.2 mg Q4H PRN IVP SEVERE PAIN (7-10) 05/22/25 18:30 05/27/25 18:29 Lactated Ringer's 1,000 ml @ 75 mls/hr [id number] IV 05/22/25 04:30 06/21/25 04:29 05/23/25 05:50 75 MLS/HR Magnesium Sulfate 50 ml @ 0 mls/hr PROTOCOL PRN IV h 05/22/25 04:30 06/21/25 04:29 05/23/25 05:40 25 MLS/HR Morphine Sulfate (morPHINE 2MG SYG) 2 mg Q4H PRN IVP SEVERE PAIN (7-10) 05/22/25 04:30 05/22/25 18:19 DC 05/22/25 12:55 2 MG Ondansetron HCl (zoFRAN 4MG INJ) 4 mg Q6H PRN IV NAUSEA/VOMITING 05/22/25 04:30 06/21/25 04:29 05/22/25 05:46 4 MG Potassium Chloride 100 ml @ 50 mls/hr AD PRN IV POTASSIUM PROTOCOL 05/22/25 04:30 05/23/25 08:39 DC Potassium Chloride 100 ml @ 100 mls/hr AD PRN IV POTASSIUM PROTOCOL 05/22/25 04:30 06/21/25 04:29 Potassium Chloride (K-Dur/Klor-Con 20meq) 20 meq AD PRN PO POTASSIUM PROTOCOL 05/22/25 04:30 06/21/25 04:29 05/23/25 05:40 20 MEQ Potassium Chloride (KCl 10% Elixir 20meq/15ml) 20 meq AD PRN PO POTASSIUM PROTOCOL 05/22/25 04:30 06/21/25 04:29 DIAGNOSTICS / RADIOLOGY: [address] [place] [address] [place] [address] IMAGING REPORT Signed PATIENT: DOROTHY MITCHELL JR MR#: [id number] : 1955 SEX: M AGE: 70 LOCATION: [facility] ORDER 8 STATUS: ADM IN REPORT#: [id number] SERVICE 1 REASON: pre procedural ORDERING PHYSICIAN: PÉREZ TARANGO [employer] MANAGER PROCEDURE: CXR1VW - CHEST 1VW EXAM: CR Chest, 1 View. CLINICAL HISTORY: pre procedural COMPARISON: None provided. FINDINGS: LUNGS: Prominent bronchovascular markings in bilateral lung laboy. Mild elevation of the left hemidiaphragm. Lungs are clear. PLEURAL SPACES: No pleural effusion or pneumothorax. MEDIASTINUM: Heart size and pulmonary vessels are within normal limits. BONES: No acute osseous abnormality. IMPRESSION: 1. No acute cardiopulmonary findings. /[place] DICTATED BY: INOCENCIO WHITE Jr., MD DATE: 05/22/251248 ELECTRONICALLY SIGNED BY: INOCENCIO WHITE Jr., MD DATE: 05/22/251248 [place] [address] IMAGING REPORT Signed PATIENT: DOROTHY MITCHELL JR MR#: [id number] : 1955 SEX: M AGE: 70 LOCATION: [facility] ORDER STATUS: [facility] REPORT#: [id number] SERVICE REASON: fall ORDERING PHYSICIAN: DESTINI MCKENZIE PROCEDURE: PELVIS WO - CT PELVIS W/O CONTRAST EXAM: Non-contrast CT examination of the bony pelvis. CLINICAL HISTORY: Fall. TECHNIQUE: Thin collimated axial CT images of the bony pelvis were obtained, with sagittal and coronal reformatted images also submitted. A CT scan was done according to ALARA (As low as reasonably achievable). CONTRAST USED: Pelvic radiograph. 05/21/2025. COMPARISON: None provided. FINDINGS: No acute fracture or aggressively appearing osseous lesion. Lumbar spondylosis. Decreased bone mineralization. Mild reduction in the left hip joint space with subarticular cystic changes. Small right inguinal hernia containing fat. IMPRESSION: No acute fracture or dislocation. Osteopenia with moderate degenerative changes in the left hip. /[place] DICTATED BY: INOCENCIO WHITE Jr., MD DATE: 05/22/25322 ELECTRONICALLY SIGNED BY: INOCENCIO WHITE Jr., MD DATE: 05/22/2543916 [place] [id number] [address] IMAGING REPORT Signed PATIENT: DOROTHY MITCHELL JR MR#: [id number] : 1955 SEX: M AGE: 70 LOCATION: [facility] ORDER STATUS: REG REPORT#: [id number] SERVICE REASON: fall ORDERING PHYSICIAN: DESTINI MCKENZIE PROCEDURE: HEAD WO - CT HEAD/BRAIN W/O CONTRAST EXAM: Non-contrast CT examination of the Brain. CLINICAL HISTORY: Fall. TECHNIQUE: Thin collimated axial CT images of the brain were obtained, with sagittal and coronal reformatted images also submitted. A CT scan was done according to ALARA (As low as reasonably achievable). CONTRAST USED: None. COMPARISON: None provided. FINDINGS: No acute intracranial abnormality is present. 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 Small chronic infarct in the left frontal lobe cortex. Moderate small vessel chronic ischemic changes in bilateral cerebral white matter. No acute cortical infarction, hemorrhage, mass, or mass effect. There is mild prominence of the ventricles, cisterns, and sulci. No hydrocephalus or abnormal extra-axial fluid collections. The posterior fossa is unremarkable. The skull base and calvarium are intact. The included portions of the paranasal sinuses and bilateral mastoid air cells are clear. IMPRESSION: No acute intracranial abnormality is present. Mild generalized brain atrophy. 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 Small chronic infarct in the left frontal lobe cortex. Moderate chronic small vessel ischemic disease. /[place] DICTATED BY: INOCENCIO WHITE Jr., MD DATE: 05/22/25243 ELECTRONICALLY SIGNED BY: INOCENCIO WHITE Jr., MD DATE: 05/22/25243 [place] [id number] [address] IMAGING REPORT Signed PATIENT: DOROTHY MITCHELL JR MR#: [id number] : 1955 SEX: M AGE: 70 LOCATION: [facility] ORDER STATUS: REG ER REPORT#: [id number] SERVICE REASON: r/o right knee fracture ORDERING PHYSICIAN: DESTINI MCKENZIE PROCEDURE: LOW EXT WO - CT LOW EXT W/O CONTRAST EXAM: Non-contrast CT examination of the right knee. CLINICAL HISTORY: Rule out right knee fracture. TECHNIQUE: Thin collimated axial CT images of the right knee were obtained, with sagittal and coronal reformatted images also submitted. A CT scan was done according to ALARA (As low as reasonably achievable). CONTRAST USED: None. COMPARISON: None provided. FINDINGS: There is a minimally depressed acute intra-articular fracture of the lateral tibial plateau. Decreased bone mineralization. Small tricompartmental osteophytes. Joint spaces are within normal limits. Mild joint effusion. Atherosclerotic vascular calcification is present. IMPRESSION: Minimally depressed acute intra-articular fracture of the lateral tibial plateau. Mild joint effusion. Osteopenia with mild tricompartmental joint osteoarthritis. /[place] DICTATED BY: INOCENCIO WHITE Jr., MD DATE: 05/22/25316 ELECTRONICALLY SIGNED BY: INOCENCIO WHITE Jr., MD DATE: 05/22/25316 ASSESSMENT: Right lateral tibial plateau nondisplaced fracture, POA Homeless status POA Hypokalemia Type 2 diabetes mellitus POA Dehydration Hypo-Calcemia History of Left testicular surgery, right 2nd toe amputation History of alcoholism PLAN: Right lateral tibial plateau nondisplaced fracture, POA Orthopedic surgery recommended Conservative management Nonweightbearing status on right lower extremity for 3 weeks Follow up with ortho outpatient in 2 weeks Type 2 diabetes mellitus POA Homeless status POA Social service and case reviewer on board and will get update regarding the discharge. ATTESTATION BY PHYSICIAN I have seen and examined the patient. I reviewed the documentation, medical decision making, and treatment plan as noted by the mid-level provider above. I agree with the findings and plan of care. Lashell Philip MD ATTESTATION BY PHYSICIAN I have seen and examined the patient. I reviewed the documentation, medical decision making, and treatment plan as noted by the mid-level provider above. I agree with the findings and plan of care. koby Philip MD, HARSHA MD May 23, 2025 15:53
[2025-05-24 03:17] VITALS: BP 143/76; PULSE 63; RESP 16; TEMP 98
[2025-05-24 05:52] LABS: IMMATURE GRANULOCYTE ABSOLUTE 0.04 K/uL (0-1); NUCLEATED RED BLOOD CELLS 0.0 % (0.0-0.19); PLATELET COUNT (AUTO) 274 K/uL (130-400); RED BLOOD CELL COUNT(AUTO) 3.44 MIL/uL (4.50-6.20); RED CELL DISTRIBUTION WIDTH 12.3 % (11.0-15.5); WHITE BLOOD COUNT (AUTO) 6.7 K/uL (4.8-10.8)
[2025-05-24 06:26] LABS: CREATININE 0.6 mg/dL (0.5-1.3); GLOMERULAR FILTR. RATE CALC 103.0 mL/min (>90); GLUCOSE,RANDOM 162.0 mg/dL (70-105); SODIUM SERUM 139.0 mmol/L (136-145); UREA NITROGEN, BLOOD 12.0 mg/dL (7-18)
--- NOTE | 2025-05-24 06:29 | NUR ---
chair patient refuses to go to the chair this morning. he will wait for physical therapy to get him up. he is dangling at the side of the bed right now.
[2025-05-24 08:00] VITALS: BP 157/83; PULSE 72; RESP 18; TEMP 97.6
[2025-05-24 09:00] VITALS: O2SAT 78
[2025-05-24] MEDS: PoTASSium chl 10% ELIXIR 20MEQ 20 MEQ/15 ML UDCUP PO PRN (10:16)
[2025-05-24] MEDS ORDERED: DEXTROSE 50%-WATER 50 ML DISP.SYRIN IV PRN (11:00)
[2025-05-24] MEDS ORDERED: GLUCAGON 1MG KIT 1 MG ML IM PRN (11:00)
[2025-05-24 12:00] VITALS: BP 143/71; PULSE 67; RESP 18; TEMP 97.8
[2025-05-24 16:00] VITALS: BP 140/72; PULSE 68; RESP 18; TEMP 97.6
--- NOTE | 2025-05-24 18:09 | DS ---
Discharge Summary Hospital Course Summary: 70-year-old male with history of fall presented with right leg pain. Imaging revealed an undisplaced fracture of the lateral tibial condyle with mild knee osteoarthritis and joint effusion. Pelvic E imaging was negative for acute fracture but it showed osteopenia and degenerative hip changes. 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 Hospital course included orthopedic consultation, placement of right knee immobilizer, pain control with morphine, and correction of hypokalemia. Urine culture grew [id number] colony-forming units without acute infection. 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 At discharge, the patient is hemodynamically stable,, pain is controlled, and the right knee immobilizer remains in the place. Follow up with Orthopedics in 1-2 weeks and PCP within 1 week. Parts Identification Technician(s): [place] [address] [place] [phone] CONSULTATION NOTE Date of Service: May 22, 2025 Reason for Consultation: Right tibial plateau fracture Requesting Physician: No one called me HISTORY OF PRESENT ILLNESS: 70-year-old male with right knee injury status post fall four days ago. Patient was reporting right leg pain when he was out of town at that time. He reports that he was seen in the hospital and told nothing was wrong. He came to the emergency room here due to continued pain in the right leg. Right knee x-ray showed a lateral tibial plateau fracture that was nondisplaced. This was confirmed on CT scan. Orthopedics was consulted for management of this. The emergency room placed him into a knee immobilizer. REVIEW OF SYSTEMS CONSTITUTIONAL: Denies fever, chills, or fatigue. HEAD/FACE: No signs of trauma. EENT: Denies eye pain, blurred vision, double vision, or light sensitivity. RESPIRATORY: Denies shortness of breath, cough, wheezing CARDIOVASCULAR: Denies chest pain, palpitation, syncope GASTROINTESTINAL/ABDOMINAL: Denies abdominal pain, constipation, diarrhea, nausea or vomiting GENITOURINARY: Denies dysuria or hematuria. MUSCULOSKELETAL: Reports joint pain, tenderness, trauma. INTEGUMENTARY: Denies rash or itchiness NEUROLOGICAL/PSYCH: Denies anxiety, depression, heat or cold intolerance. PAST MEDICAL HISTORY: Denies PAST SURGICAL HISTORY: Left testicular surgery, right 2nd toe amputation PAST SOCIAL HISTORY: Negative x3, homeless FAMILY HISTORY: Noncontributory Coded Allergies: No Known Drug Allergies (Unverified Allergy, Unknown, 05/21/25) PHYSICAL EXAM EYES: Anicteric. HENT: Moist Oral mucosa NECK: Supple LUNGS: Nonlabored breathing CARDIOVASCULAR: Regular rate ABDOMEN: Nondistended CENTRAL NERVOUS SYSTEM: Awake, alert, oriented x 3. No focal deficits. SKIN: No lacerations, no abrasions, no ecchymosis LYMPHATICS: No peripheral lymphadenopathy MUSCULOSKELETAL: Right lower extremity in a knee immobilizer. Patient yells in pain when I gently touched the foot to remove his sock for distal neurovascular exam and yells at me to take my hand off of him. He states that his sensation is intact. He wheels as toes on command. EXTREMITIES: No cyanosis or clubbing BACK: Deferred GENITOURINARY: Deferred Vital Sign (Last 24 Hours) 05/22/25 05/22/25 05/22/25 08:00 12:00 16:22 Temp 96.6 Pulse 68 Resp 16 B/P (MAP) 134/66 Pulse Ox 97 O2 Delivery Room Air O2 Flow Rate 0 FiO2 21 LABS: Laboratory: Test 05/22/25 10:48 05/22/25 09:18 05/22/25 05:38 05/22/25 00:45 Range/Units Urine Color YELLOW YELLOW Urine Appearance CLEAR CLEAR Urine pH 5.5 5.0-8.0 Urine Specific [place] 1.028 1.001-1.031 Urine Protein 70 H NEGATIVE mg/dL Urine Glucose (UA) 300 H NEGATIVE mg/dL Urine Ketones 20 H NEGATIVE mg/dL Urine Occult Blood NEGATIVE NEGATIVE Urine Nitrate NEGATIVE NEGATIVE Urine Bilirubin 0.5 H NEGATIVE mg/dL Urine Urobilinogen 0.2 0.2-1.0 mg/dL Urine Leukocyte Esterase NEGATIVE NEGATIVE Sergio/uL Urine RBC 0-1 0-1 /HPF Urine WBC 6-10 H 0-1 /HPF Urine Bacteria None None Seen /HPF Lactic Acid Level 1.1 0.8-2.5 mmol/L Total Creatine Kinase 92 21-232 U/L Prothrombin Time 11.3 9.6-11.6 SEC Prothromb Time International Ratio 1.07 0.85-1.15 Activated Partial Thromboplast Time 30.4 26.3-35.5 SEC White Blood Count 11.6 H 4.8-10.8 K/uL Red Blood Count 4.09 L 4.50-6.20 MIL/uL Hemoglobin 13.2 L 14.0-18.0 g/dL Hematocrit 37.3 L 42-54 % Mean Corpuscular Volume 91.2 79-99 fL Mean Corpuscular Hemoglobin 32.3 27.0-33.0 pg Mean Corpuscular Hemoglobin Concent 35.4 32.0-36.0 g/dL Red Cell Distribution Width 12.5 11.0-15.5 % Platelet Count 356 130-400 K/uL Mean Platelet Volume 9.6 7.5-10.5 fL Immature Granulocyte % (Auto) 0.4 0-1 % Neutrophils (%) (Auto) 80.8 H 40.0-77.0 % Lymphocytes (%) (Auto) 11.6 L 21.0-51.0 % Monocytes (%) (Auto) 6.5 3.0-13.0 % Eosinophils (%) (Auto) 0.5 0.0-8.0 % Basophils (%) (Auto) 0.2 0.0-5.0 % Neutrophils # (Auto) 9.4 H 1.8-7.7 K/uL Lymphocytes # (Auto) 1.4 1.0-4.8 K/uL Monocytes # (Auto) 0.8 0.1-1.0 K/uL Eosinophils # (Auto) 0.06 0.00-0.70 K/uL Basophils # (Auto) 0.02 0.00-0.20 K/uL Absolute Immature Granulocyte (auto 0.05 0-1 K/uL Nucleated Red Blood Cells 0.0 0.0-0.19 % Sodium Level 141 136-145 mmol/L Potassium Level 3.0 *L 3.5-5.1 mmol/L Chloride Level 104 101-111 mmol/L Carbon Dioxide Level 24 21-32 mmol/L Blood Urea Nitrogen 27 H 7-18 mg/dL Creatinine 1.0 0.5-1.3 mg/dL Glomerular Filtration Rate Calc 80 >90 mL/min Random Glucose 195 H 70-105 mg/dL Total Calcium 8.3 L 8.5-10.1 mg/dL Magnesium Level 2.00 1.80-2.40 mg/dL DIAGNOSTICS / RADIOLOGY: Two views of the right knee with nondisplaced right lateral tibial plateau fracture. CT scan confirmed isolated right lateral tibial plateau fracture ASSESSMENT: 70-year-old male with right lateral tibial plateau nondisplaced fracture PLAN: This can be treated in knee immobilizer. Patient is to remain nonweightbearing on the right lower extremity over the next three months. [facility] two weeks. HARSHAL GONZALEZ MD May 22, 2025 16:45 Electronically Signed by: HARSHAL GONZALEZ MD05/22/25 1645 Electronically Co-Signed by: Procedure(s): [facility] [address] [place] [address] [phone] IMAGING REPORT Signed PATIENT: DOROTHY MITCHELL JR MR#: [id number] : 1955 SEX: M AGE: 70 LOCATION: ED ORDER 00 STATUS: REG [facility] REPORT#: [id number] SERVICE 53 REASON: r/o fx ORDERING PHYSICIAN: DESTINI MCKENZIE PROCEDURE: KNEE 3V RT - KNEE 3VWS RT EXAM: CR Right Knee, 3 views. CLINICAL HISTORY: To rule out fracture. COMPARISON: None. FINDINGS: Undisplaced articular surface fracture of the lateral tibial condyle. The remaining visualized bones are normal in cortical outline and density. No aggressive osseous lesion. Mild knee joint osteoarthritis. Mild joint effusion. The soft tissues are unremarkable. IMPRESSION: Undisplaced articular surface fracture of the lateral tibial condyle. Mild knee joint osteoarthritis and effusion. Recommend NCCT right knee for further evaluation. /[place] DICTATED BY: INOCENCIO WHITE Jr., MD DATE: 05/22/2534 ELECTRONICALLY SIGNED BY: INOCENCIO WHITE Jr., MD DATE: 05/22/2534 [place] [id number] [place] [address] [phone] IMAGING REPORT Signed PATIENT: DOROTHY MITCHELL JR MR#: [id number] : 1955 SEX: M AGE: 70 LOCATION: ED ORDER 00 STATUS: REG ER REPORT#: [id number] SERVICE 53 REASON: r/o fx ORDERING PHYSICIAN: DESTINI MCKENZIE PROCEDURE: PELVIS - PELVIS 1-2VWS EXAM: CR Pelvis, 1 view. CLINICAL HISTORY: To rule out fracture. COMPARISON: None provided. FINDINGS: No acute fracture or aggressive appearing osseous lesion. Joint spaces are within normal limits. The soft tissues are unremarkable. IMPRESSION: No acute osseous abnormality. /[place] DICTATED BY: INOCENCIO WHITE Jr., MD DATE: 05/22/25201 ELECTRONICALLY SIGNED BY: INOCENCIO WHITE Jr., MD DATE: 05/22/25[address] [place] [address] IMAGING REPORT Signed PATIENT: DOROTHY MITCHELL JR MR#: [id number] : 1955 SEX: M AGE: 70 LOCATION: [facility] ORDER 00 STATUS: REG ER [facility] REPORT#: [id number] SERVICE 53 REASON: r/o fx ORDERING PHYSICIAN: DESTINI MCKENZIE PROCEDURE: TIBFIB RT - TIBIA/FIBULA 2VWS RT EXAM: CR Right Tibia-fibula, 4 views. CLINICAL HISTORY: To rule out fracture. COMPARISON: None. FINDINGS: Undisplaced articular surface fracture of the lateral tibial condyle. The remaining visualized bones are normal in cortical outline and density. No aggressive osseous lesion. Mild right knee and ankle joint osteoarthritis. The soft tissues are unremarkable. IMPRESSION: Undisplaced articular surface fracture of the lateral tibial condyle. Mild right knee and ankle joint osteoarthritis. Recommend NCCT right knee for further evaluation. /[place] DICTATED BY: INOCENCIO WHITE Jr., MD DATE: 05/22/2537 ELECTRONICALLY SIGNED BY: INOCENCIO WHITE Jr., MD DATE: 05/22/2537 [place] [address] [address] IMAGING REPORT Signed PATIENT: DOROTHY MITCHELL JR MR#: [id number] : 1955 SEX: M AGE: 70 LOCATION: ED ORDER STATUS: REG ER REPORT#: [id number] SERVICE REASON: r/o right knee fracture ORDERING PHYSICIAN: DESTINI MCKENZIE PROCEDURE: LOW EXT WO - CT LOW EXT W/O CONTRAST EXAM: Non-contrast CT examination of the right knee. CLINICAL HISTORY: Rule out right knee fracture. TECHNIQUE: Thin collimated axial CT images of the right knee were obtained, with sagittal and coronal reformatted images also submitted. A CT scan was done according to ALARA (As low as reasonably achievable). CONTRAST USED: None. COMPARISON: None provided. FINDINGS: There is a minimally depressed acute intra-articular fracture of the lateral tibial plateau. Decreased bone mineralization. Small tricompartmental osteophytes. Joint spaces are within normal limits. Mild joint effusion. Atherosclerotic vascular calcification is present. IMPRESSION: Minimally depressed acute intra-articular fracture of the lateral tibial plateau. Mild joint effusion. Osteopenia with mild tricompartmental joint osteoarthritis. /[place] DICTATED BY: INOCENCIO WHITE Jr., MD DATE: 05/22/25316 ELECTRONICALLY SIGNED BY: INOCENCIO WHITE Jr., MD DATE: 05/22/25316 [place] [address] [address] IMAGING REPORT Signed PATIENT: DOROTHY MITCHELL JR MR#: [id number] : 1955 SEX: M AGE: 70 LOCATION: ED ORDER STATUS: REG ER REPORT#: [id number] SERVICE 0033 REASON: fall ORDERING PHYSICIAN: DESTINI MCKENZIE PROCEDURE: HEAD WO - CT HEAD/BRAIN W/O CONTRAST EXAM: Non-contrast CT examination of the Brain. CLINICAL HISTORY: Fall. TECHNIQUE: Thin collimated axial CT images of the brain were obtained, with sagittal and coronal reformatted images also submitted. A CT scan was done according to ALARA (As low as reasonably achievable). CONTRAST USED: None. COMPARISON: None provided. FINDINGS: No acute intracranial abnormality is present. 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 Small chronic infarct in the left frontal lobe cortex. Moderate small vessel chronic ischemic changes in bilateral cerebral white matter. No acute cortical infarction, hemorrhage, mass, or mass effect. There is mild prominence of the ventricles, cisterns, and sulci. No hydrocephalus or abnormal extra-axial fluid collections. The posterior fossa is unremarkable. The skull base and calvarium are intact. The included portions of the paranasal sinuses and bilateral mastoid air cells are clear. IMPRESSION: No acute intracranial abnormality is present. Mild generalized brain atrophy. 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 Small chronic infarct in the left frontal lobe cortex. Moderate chronic small vessel ischemic disease. /[place] DICTATED BY: INOCENCIO WHITE Jr., MD DATE: 05/22/25243 ELECTRONICALLY SIGNED BY: INOCENCIO WHITE Jr., MD DATE: 05/22/25[address] [place] [address] IMAGING REPORT Signed PATIENT: DOROTHY MITCHELL JR MR#: [id number] : 1955 SEX: M AGE: 70 LOCATION: ED ORDER STATUS: REG ER REPORT#: [id number] SERVICE REASON: fall ORDERING PHYSICIAN: DESTINI MCKENZIE PROCEDURE: PELVIS WO - CT PELVIS W/O CONTRAST EXAM: Non-contrast CT examination of the bony pelvis. CLINICAL HISTORY: Fall. TECHNIQUE: Thin collimated axial CT images of the bony pelvis were obtained, with sagittal and coronal reformatted images also submitted. A CT scan was done according to ALARA (As low as reasonably achievable). CONTRAST USED: Pelvic radiograph. 05/21/2025. COMPARISON: None provided. FINDINGS: No acute fracture or aggressively appearing osseous lesion. Lumbar spondylosis. Decreased bone mineralization. Mild reduction in the left hip joint space with subarticular cystic changes. Small right inguinal hernia containing fat. IMPRESSION: No acute fracture or dislocation. Osteopenia with moderate degenerative changes in the left hip. /[place] DICTATED BY: INOCENCIO WHITE Jr., MD DATE: 05/22/25322 ELECTRONICALLY SIGNED BY: INOCENCIO WHITE Jr., MD DATE: 05/22/25322 [place] [address] IMAGING REPORT Signed PATIENT: DOROTHY MITCHELL JR MR#: [id number] : 1955 SEX: M AGE: 70 LOCATION: [facility] ORDER 8 STATUS: ADM IN REPORT#: [id number] SERVICE 1 REASON: pre procedural ORDERING PHYSICIAN: PÉREZ TARANGO SEWER AND INSPECTOR PROCEDURE: CXR1VW - CHEST 1VW EXAM: CR Chest, 1 View. CLINICAL HISTORY: pre procedural COMPARISON: None provided. FINDINGS: LUNGS: Prominent bronchovascular markings in bilateral lung laboy. Mild elevation of the left hemidiaphragm. Lungs are clear. PLEURAL SPACES: No pleural effusion or pneumothorax. MEDIASTINUM: Heart size and pulmonary vessels are within normal limits. BONES: No acute osseous abnormality. IMPRESSION: 1. No acute cardiopulmonary findings. /[place] DICTATED BY: INOCENCIO WHITE Jr., MD DATE: 05/22/25 124 ELECTRONICALLY SIGNED BY: INOCENCIO WHITE Jr., MD DATE: 05/22/25 1249 Assessment/Plan: ASSESSMENT: Right lateral tibial plateau nondisplaced fracture, POA Homeless status POA Hypokalemia Type 2 diabetes mellitus POA Dehydration Hypo-Calcemia History of Left testicular surgery, right 2nd toe amputation History of alcoholism PLAN: Activity Instructed to Keep the knee immobilizer on at all times unless directed otherwi se Instructed Do not put weight on right leg Diet Regular diet as tolerated Stay hydrated Medications Instructed to To Take med pain medicine as prescribed Follow-up Discharge Instructions: Activity Instructed to Keep the knee immobilizer on at all times unless directed otherwi se Instructed Do not put weight on right leg Diet Regular diet as tolerated Stay hydrated Medications Instructed to To Take med pain medicine as prescribed Follow-up orthopedic clinic consultation within 1-2 weeks Primary care provider within 1 week Rehabilitation facility our social media job titles will assist with placement and on going therapy Time spent arranging discharge: 1-30 minutes ATTESTATION BY PHYSICIAN I have seen and examined the patient. I reviewed the documentation, medical decision making, and treatment plan as noted by the mid-level provider above. I agree with the findings and plan of care. koby Philip MD, HARSHA MD May 24, 2025 18:09
--- NOTE | 2025-05-24 18:55 | NUR ---
DISCHARGE 1830 DISCHARGE ORDERS OBTAINED FOR PATIENT TO BE DISCHARGED AND TRANSFERRED TO [facility]. DISCHARGE INSTRUCTIONS AND DOCUMENTATION GIVEN TO PATIENT. IV DISCONTINUED, CATHETER INTACT, NO S/S OF INFECTION NOTED TO AREA. BANDS REMOVED PRIOR TO DISCHARGE. PENDING TRANSPORTATION FROM EMS. REPORT CALLED INTO [facility], SPOKE WITH CHAVEZ CURRY. PROVIDED WITH PATIENT'S CONDITION, HX AND MD'S ORDERS. VOICED UNDERSTANDING. ALL QUESTIONS ANSWERED. 1850 CONTACTED EMS FOR TRANSPORT. PENDING ARRIVAL.
[2025-05-24 19:39] VITALS: BP 128/65; PULSE 69; RESP 20; TEMP 98.5
== END 2025-05-24 19:55 | DRG 563 ==
LOC: EDH 22:09 → EDHIP 22:10 → 4CH 05-22 05:12
PROVIDERS: ADMIT Internal Medicine; ATTEND Internal Medicine
DX: S82.144A Nondisplaced bicondylar fracture of right tibia, initial encounter for closed fracture (principal); Z59.00 Homelessness unspecified; E87.6 Hypokalemia; E11.9 Type 2 diabetes mellitus without complications; E86.0 Dehydration; F10.20 Alcohol dependence, uncomplicated; G93.89 Other specified disorders of brain; W01.0XXA Fall on same level from slipping, tripping and stumbling without subsequent striking against object, initial encounter; G31.9 Degenerative disease of nervous system, unspecified; Y93.89 Activity, other specified; Y92.89 Other specified places as the place of occurrence of the external cause; Y99.8 Other external cause status; Z86.73 Personal history of transient ischemic attack (TIA), and cerebral infarction without residual deficits; E83.51 Hypocalcemia
CPT/HCPCS: 36415; 70450; 71045; 72170; 72192; 73562; 73590; 73700; 80048; 81001; 82306; 82550; 82948; 83036; 83605; 83735; 84100; 84443; 85025; 85610; 85730; 86850; 86900; 86901; 87086; 93005; 96374; 96375; 99285; G0378; J1171; J1815; J2270; J2405; J3475; J3490